=== PATIENT | male | born 1960 | race African-American/Black ===

== ENCOUNTER 2019-07-07 17:14 | Emergency (ER) | payer OTHER ==
[~2019-07-07] VITALS: Ht 167.6 cm; Wt 68.0 kg
[2019-07-07 17:29] VITALS: BP_SYST 130
--- NOTE | 2019-07-07 17:34 | NUR ---
Patient to ER bed 8 to gown for evaluation. Side rails up. Report given to Beata CHOUDHARY.
--- NOTE | 2019-07-07 17:40 | NUR ---
Waldemar Copeland at bedside examining patient.
--- NOTE | 2019-07-07 17:50 | NUR ---
pt arrives from home. pt w/ c/o fever, cough, and congestion. Pt expresses concerns dregarding having the [place]rona virus. States that his daughter daughter recently visited from [facility] and his daughter had a respiratory illness
--- NOTE | 2019-07-07 17:55 | NUR ---
pt getting a CXR at the bedside
--- NOTE | 2019-07-07 18:00 | NUR ---
Ekg collected and given to
--- NOTE | 2019-07-07 18:15 | NUR ---
# 22 gauge angiocath placed to RAC. Use of asceptic technique. Opsite placed over site. Blood return noted. Blood for lab drawn from site. Flushed with 10 cc of normal saline. No evidence of infiltration noted. Patient tolerated well.
--- NOTE | 2019-07-07 18:30 | NUR ---
urine sample collected and sent to the lab
[2019-07-07 18:50] LABS: CALCIUM 8.5 mg/dL (8.4-11.0); CREATININE 1.04 mg/dL (0.55-1.30); POTASSIUM 3.9 mmol/L (3.5-5.1)
[2019-07-07 18:52] LABS: BASOPHILS % (AUTO) 0.9 % (0.0-2.0); EOSINOPHILS # (AUTO) 0.1 K/uL (0.0-0.4); HEMATOCRIT 45.3 % (36-54); HEMOGLOBIN 15.1 g/dL (14.0-18.0); LYMPHOCYTES % (AUTO) 55.3 % (20.5-51.5); MEAN CORPUSCULAR HEMOGLOBIN 28 pg (27-31); MEAN CORPUSCULAR HGB CONC 33 % (32-36); MEAN CORPUSCULAR VOLUME 84 fL (79.0-98.0); MONOCYTES # (AUTO) 0.7 K/uL (0.0-1.0); MONOCYTES % (AUTO) 12.7 % (1.7-9.3); NEUTROPHILS # (AUTO) 1.6 K/uL (1.8-7.7); NEUTROPHILS % (AUTO) 29.1 % (40.0-70.0); PLATELET COUNT (AUTO) 215 K/uL (130-430); RED BLOOD CELL COUNT(AUTO) 5.41 MIL/uL (4.2-6.2); RED CELL DISTRIBUTION WIDTH 13.4 % (9.0-15.0); WHITE BLOOD COUNT (AUTO) 5.4 K/uL (4.8-10.8)
[2019-07-07 18:56] LABS: ALBUMIN 3.4 g/dL (3.4-4.8); TOTAL BILIRUBIN 0.6 mg/dL (0.0-1.0)
[2019-07-07 19:09] LABS: BILIRUBIN,URINE NEGATIVE (NEGATIVE); BLOOD, URINE NEGATIVE (NEGATIVE); CLARITY/URINE CLEAR (CLEAR); COLOR,URINE YELLOW (YELLOW); GLUCOSE,URINE NEGATIVE (NEGATIVE); KETONES,URINE NEGATIVE (NEGATIVE); LEUKOCYTE ESTERASE ,URINE NEGATIVE (NEGATIVE); NITRITE, URINE NEGATIVE (NEGATIVE); PH,URINE 5.5 (5.0-8.0); PROTEIN URINE NEGATIVE (NEGATIVE); UROBILINOGEN,URINE 0.2 (0.2-1.0)
--- NOTE | 2019-07-07 19:11 | NUR ---
care endorsed to Flavia CHOUDHARY. Pt is in stable condition.
[2019-07-07 19:12] VITALS: BP_SYST 130
--- NOTE | 2019-07-07 19:12 | NUR ---
Per Dr. Pulido, there is not a need to inform the [facility] of the pt's visit. All exams perform were reviewed by Dr. Pulido
--- NOTE | 2019-07-07 19:14 | NUR ---
Patient given written and verbal discharge instructions and verbalizes understanding. ER MD discussed with patient the results and treatment provided. Patient in stable condition. ID arm band removed. IV catheter removed intact and dressing applied, no active bleeding. Patient educated on pain management and to follow up with PMD. Pain Scale 0/10. Opportunity for questions provided and answered. Medication side effect fact sheet provided. Dr. Pulido spoke w/ the pt at the bedside.
== END 2019-07-07 19:14 | disposition home or self-care (01) ==
LOC: SED 17:14
DX: B34.9 Viral infection, unspecified (principal); R05 Cough
CPT/HCPCS: 36415; 71045; 80053; 81003; 83605; 84484; 85025; 86710; 87040-TC; 87086; 93005; 99285